=== PATIENT | male | born 2005 | race Caucasian/White ===

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

== ENCOUNTER 2024-02-04 13:53 | Emergency (ER) | payer OTHER ==
[~2024-02-04] VITALS: Ht 175.3 cm; Wt 72.6 kg
[~2024-02-04 13:53] MED LIST changes: +ONDA-188 SL
[2024-02-04 14:13] VITALS: BP 135/90; PULSE 78; RESP 18; TEMP 98.3; O2SAT 100
[2024-02-04] MEDS: IBUPROFEN 400 MG TAB PO ONE (14:39)
[2024-02-04] MEDS: ACETAMINOPHEN EXTRA STRENGTH 500 MG TAB PO ONE (14:39)
[2024-02-04] MEDS ORDERED: IBUPROFEN 400 MG TAB ONE (14:40)
[2024-02-04] MEDS ORDERED: ACETAMINOPHEN EXTRA STRENGTH 500 MG TAB ONE (14:40)
[2024-02-04 15:53] LABS: FLU A ANTIGEN NEGATIVE (NEGATIVE); FLU B ANTIGEN NEGATIVE (NEGATIVE)
[2024-02-04] MEDS ORDERED: ONDA-188 PO (15:53)
[2024-02-04] MEDS ORDERED: IBUP-1842 PO (15:53)
[2024-02-04] MEDS ORDERED: ACET500T99 PO (15:53)
[2024-02-04 16:25] VITALS: BP 124/64; PULSE 98; RESP 19; TEMP 98.7; O2SAT 100
== END 2024-02-04 16:27 | disposition home or self-care (01) ==
LOC: MED 13:53
DX: U07.1 COVID-19 (principal); F17.210 Nicotine dependence, cigarettes, uncomplicated; F12.90 Cannabis use, unspecified, uncomplicated; Z79.899 Other long term (current) drug therapy
CPT/HCPCS: 82948; 99283